=== PATIENT | female | born 1985 | race African-American/Black ===

== ENCOUNTER 2018-07-09 19:27 | Emergency (ER) | payer OTHER ==
[~2018-07-09] VITALS: Ht 170.2 cm; Wt 68.5 kg
--- NOTE | 2018-07-09 20:37 | NUR ---
PT CAME IN B SELF, C/O H/A 11/06 RADIATING TO NECK, VS STABLE, ON R/A WELL TOLERATED, PLACED ON ER BED 1, SEEN AND EVAL DONE BY ER Shannan GILMAN, AWAITING ORDERS.
[2018-07-09] MEDS ORDERED: ACETAMINOPHEN ES 500 MG TABLET PO ONE (21:00)
[2018-07-09] MEDS ORDERED: IV NS 0.9% 500 ML BAG IV ONE (21:00)
[2018-07-09] MEDS ORDERED: DEXAMETHASONE SOD PHOSPHATE 10 MG/ML VIAL IV ONE (21:00)
[2018-07-09 21:22] LABS: BASOPHILS # (AUTO) 0.1 /CMM (0.0-0.2); BASOPHILS % (AUTO) 2.1 % (0.0-2.0); EOSINOPHILS % (AUTO) 3.9 % (0.0-6.0); HEMATOCRIT 38 % (33-45); HEMOGLOBIN 12.9 g/dL (11.5-14.8); LYMPHOCYTES # (AUTO) 1.9 /CMM (0.8-4.8); LYMPHOCYTES % (AUTO) 48.4 % (20.0-44.0); MEAN CORPUSCULAR HGB CONC 34 g/dl (31.0-36.0); MEAN CORPUSCULAR VOLUME 95 fL (82-100); MONOCYTES # (AUTO) 0.3 /CMM (0.1-1.30); NEUTROPHILS # (AUTO) 1.5 /CMM (1.8-8.9); NEUTROPHILS % (AUTO) 38.6 % (43.0-81.0); PLATELET COUNT (AUTO) 179 /CMM (150-450); RED BLOOD CELL COUNT(AUTO) 4.05 MIL/uL (4.0-5.2); WHITE BLOOD COUNT (AUTO) 3.9 K/uL (4.3-11.0)
[2018-07-09 21:31] LABS: CALCIUM, SERUM 8.4 mg/dL (8.5-10.1); CREATININE 0.7 mg/dL (0.6-1.3); POTASSIUM 3.9 mmol/L (3.5-5.1)
[2018-07-09] MEDS ORDERED: DEXAMETHASONE SOD PHOSPHATE 10 MG/ML VIAL ONE (21:39)
[2018-07-09] MEDS ORDERED: ACETAMINOPHEN ES 500 MG TABLET ONE (21:39)
--- NOTE | 2018-07-09 23:00 | NUR ---
Patient discharged to home in stable condition. Written and verbal after care instructions given. Patient verbalizes understanding of instruction. Denies any h/a at dc time.
[2018-07-09 23:43] VITALS: BP 123/68
== END 2018-07-09 23:45 | disposition home or self-care (01) ==
LOC: ER 19:31
DX: R51 Headache (principal); K01.1 Impacted teeth
CPT/HCPCS: 36415; 80048; 84703; 85025; 96374; 99283; J1100; J7030